=== PATIENT | male | born 1950 | race Asian ===

== ENCOUNTER → 2017-04-15 | Outpatient (CLI) | payer BC ==
[2017-04-15 07:09] LABS: ADD MAN DIFF? NO
[2017-04-15 07:11] LABS: BASOPHILS % 0.6 % (0.0-2.0); EOSINOPHILS # 0.1 10^3/ul (0.0-0.5); EOSINOPHILS % 1.9 % (0.0-7.0); HEMATOCRIT 41.7 % (42.0-52.0); LYMPHOCYTES # 1.9 10^3/ul (0.8-2.9); MEAN CORPUSCULAR HGB CONC 33.6 g/dl (32.0-37.0); MEAN CORPUSCULAR VOLUME 89.3 fl (82.0-101.0); MEAN PLATELET VOLUME 8.9 fl (7.4-10.4); MONOCYTE # 0.3 10^3/ul (0.3-0.9); MONOCYTES % 6.4 % (0.0-11.0); NEUTROPHIL # 2.7 10^3/ul (1.6-7.5); NEUTROPHILS % 53.5 % (39.0-77.0); PLATELET COUNT 275 10^3/UL (140-415); RED BLOOD COUNT 4.67 10^6/ul (4.70-6.10); RED CELL DISTRIBUTION WIDTH 12.6 % (11.5-14.5)
[2017-04-15 07:11] LABS: WHITE BLOOD COUNT 5.1 10^3/ul (4.8-10.8)
[2017-04-15 07:22] LABS: HEMOGLOBIN A1C 6.4 % (0-5.9)
[2017-04-15 07:42] LABS: ALANINE AMINOTRANSFERASE 40 IU/L (13-69); ALBUMIN 4.5 g/dl (3.3-4.9); ALBUMIN/GLOBULIN RATIO 1.12; ALKALINE PHOSPHATASE 52 IU/L (42-121); ANION GAP 17 (8-16); ASPARTATE AMINO TRANSFERASE 33 IU/L (15-46); BILIRUBIN,INDIRECT 0.4 mg/dl (0-1.1); BILIRUBIN,TOTAL 0.4 mg/dl (0.2-1.3); BLOOD UREA NITROGEN 17 mg/dl (7-20); CALCIUM 10.1 mg/dl (8.4-10.2); CARBON DIOXIDE 28 mmol/L (21-31); CHLORIDE 105 mmol/L (97-110); CHOL/HDL RATIO 4.4 RATIO; CHOLESTEROL 179 mg/dl (100-200); CREATININE 1.13 mg/dl (0.61-1.24); GLUCOSE 131 mg/dl (70-220); HDL CHOLESTEROL 40 mg/dl (30-78); LDL CHOLESTEROL,CALCULATED 101 mg/dl; POTASSIUM 4.4 mmol/L (3.5-5.1); SODIUM 146 mmol/L (135-144); TOTAL PROTEIN 8.5 g/dl (6.1-8.1); TRIGLYCERIDES 188 mg/dl (0-149)
== END | disposition home or self-care (01) ==
LOC: LAB 06:49
DX: R73.9 Hyperglycemia, unspecified (principal); E78.00 Pure hypercholesterolemia, unspecified; I10 Essential (primary) hypertension
CPT/HCPCS: 80053; 80061; 83036; 84443; 85025

== ENCOUNTER → 2018-02-12 | Outpatient (CLI) | payer BC ==
[2018-02-12 07:57] LABS: ADD MAN DIFF? NO
[2018-02-12 07:59] LABS: BASOPHILS % 0.6 % (0.0-2.0); EOSINOPHILS # 0.1 10^3/ul (0.0-0.5); HEMATOCRIT 41.9 % (42.0-52.0); HEMOGLOBIN 14.1 g/dl (14.0-18.0); LYMPHOCYTES # 1.8 10^3/ul (0.8-2.9); MEAN CORPUSCULAR HEMOGLOBIN 29.9 pg (29.0-33.0); MEAN CORPUSCULAR HGB CONC 33.7 g/dl (32.0-37.0); MEAN CORPUSCULAR VOLUME 88.8 fl (82.0-101.0); MEAN PLATELET VOLUME 9.6 fl (7.4-10.4); MONOCYTE # 0.4 10^3/ul (0.3-0.9); MONOCYTES % 7.3 % (0.0-11.0); NEUTROPHILS % 56.4 % (39.0-77.0); PLATELET COUNT 205 10^3/UL (140-415); RED BLOOD COUNT 4.72 10^6/ul (4.70-6.10); RED CELL DISTRIBUTION WIDTH 12.4 % (11.5-14.5)
[2018-02-12 07:59] LABS: WHITE BLOOD COUNT 5.4 10^3/ul (4.8-10.8)
[2018-02-12 08:09] LABS: ADD UMIC NO; UR ASCORBIC ACID 20 mg/dL (NEGATIVE); UR BILIRUBIN (Dip) NEGATIVE (NEGATIVE); UR BLOOD (Dip) NEGATIVE (NEGATIVE); UR CLARITY CLEAR (CLEAR); UR COLOR YELLOW (YELLOW); UR GLUCOSE (Dip) NEGATIVE (NEGATIVE); UR KETONES (Dip) NEGATIVE (NEGATIVE); UR LEUKOCYTE ESTERASE (Dip) NEGATIVE Leu/ul (NEGATIVE); UR NITRITE (Dip) NEGATIVE (NEGATIVE); UR TOTAL PROTEIN (Dip) NEGATIVE (NEGATIVE); UR UROBILINOGEN (Dip) 1+ mg/dL (NEGATIVE)
[2018-02-12 08:19] LABS: ALANINE AMINOTRANSFERASE 31 IU/L (13-69); ALBUMIN 4.6 g/dl (3.3-4.9); ALBUMIN/GLOBULIN RATIO 1.43; ALKALINE PHOSPHATASE 50 IU/L (42-121); ANION GAP 9 (5-13); ASPARTATE AMINO TRANSFERASE 32 IU/L (15-46); BILIRUBIN,INDIRECT 0.4 mg/dl (0-1.1); BILIRUBIN,TOTAL 0.4 mg/dl (0.2-1.3); BLOOD UREA NITROGEN 25 mg/dl (7-20); CALCIUM 9.9 mg/dl (8.4-10.2); CARBON DIOXIDE 29 mmol/L (21-31); CHLORIDE 103 mmol/L (97-110); CHOL/HDL RATIO 4.7 RATIO; CHOLESTEROL 199 mg/dl (100-200); CREATININE 1.26 mg/dl (0.61-1.24); Estimated GFR 57 mL/min (>60); GLUCOSE 127 mg/dl (70-220); HDL CHOLESTEROL 42 mg/dl (30-78); LDL CHOLESTEROL,CALCULATED 132 mg/dl; POTASSIUM 4.8 mmol/L (3.5-5.1); SODIUM 141 mmol/L (135-144); TOTAL PROTEIN 7.8 g/dl (6.1-8.1); TRIGLYCERIDES 127 mg/dl (0-149)
[2018-02-12 08:49] LABS: PROSTATE SPECIFIC ANTIGEN 0.5 ng/ml (0.0-4.0)
== END | disposition home or self-care (01) ==
LOC: LAB 07:26
DX: I12.9 Hypertensive chronic kidney disease with stage 1 through stage 4 chronic kidney disease, or unspecified chronic kidney disease (principal); N18.9 Chronic kidney disease, unspecified; E78.5 Hyperlipidemia, unspecified; R73.9 Hyperglycemia, unspecified; R35.1 Nocturia
CPT/HCPCS: 80053; 80061; 81003; 83036; 84153; 84154; 84443; 85025

== ENCOUNTER → 2018-07-05 | Outpatient (CLI) | payer BC ==
[2018-07-05 15:22] LABS: ADD MAN DIFF? NO
[2018-07-05 15:24] LABS: WHITE BLOOD COUNT 8.6 10^3/ul (4.8-10.8)
[2018-07-05 15:24] LABS: BASOPHILS % 0.2 % (0.0-2.0); EOSINOPHILS # 0.1 10^3/ul (0.0-0.5); EOSINOPHILS % 1.6 % (0.0-7.0); HEMATOCRIT 38.7 % (42.0-52.0); HEMOGLOBIN 12.8 g/dl (14.0-18.0); LYMPHOCYTES # 1.7 10^3/ul (0.8-2.9); MEAN CORPUSCULAR HEMOGLOBIN 29.2 pg (29.0-33.0); MEAN CORPUSCULAR HGB CONC 33.1 g/dl (32.0-37.0); MEAN CORPUSCULAR VOLUME 88.2 fl (82.0-101.0); MEAN PLATELET VOLUME 9.3 fl (7.4-10.4); MONOCYTE # 0.6 10^3/ul (0.3-0.9); MONOCYTES % 6.7 % (0.0-11.0); NEUTROPHIL # 6.1 10^3/ul (1.6-7.5); PLATELET COUNT 215 10^3/UL (140-415); RED BLOOD COUNT 4.39 10^6/ul (4.70-6.10)
[2018-07-05 16:01] LABS: ALANINE AMINOTRANSFERASE 20 IU/L (13-69); ALBUMIN 4.5 g/dl (3.3-4.9); ALBUMIN/GLOBULIN RATIO 1.18; ALKALINE PHOSPHATASE 60 IU/L (42-121); AMYLASE 108 U/L (11-123); ANION GAP 10 (5-13); ASPARTATE AMINO TRANSFERASE 31 IU/L (15-46); BILIRUBIN,INDIRECT 0.4 mg/dl (0-1.1); BILIRUBIN,TOTAL 0.4 mg/dl (0.2-1.3); BLOOD UREA NITROGEN 24 mg/dl (7-20); CALCIUM 10.4 mg/dl (8.4-10.2); CARBON DIOXIDE 27 mmol/L (21-31); CHLORIDE 101 mmol/L (97-110); CREATININE 1.43 mg/dl (0.61-1.24); Estimated GFR 49 mL/min (>60); GLUCOSE 120 mg/dl (70-220); LIPASE 148 U/L (23-300); POTASSIUM 4.6 mmol/L (3.5-5.1); SODIUM 138 mmol/L (135-144); TOTAL PROTEIN 8.3 g/dl (6.1-8.1)
== END | disposition home or self-care (01) ==
LOC: LAB 14:56
DX: R10.9 Unspecified abdominal pain (principal)
CPT/HCPCS: 80053; 82150; 83690; 85025